=== PATIENT | female | born 1980 | race Caucasian/White ===

== ENCOUNTER → 2018-03-13 | Outpatient (CLI) | payer MEDICAID ==
--- NOTE | 2018-03-13 13:27 | MM ---
Reason for exam: screening (asymptomatic). Baseline mammogram. Physical Findings: Nurse did not find any significant physical abnormalities on exam. MG 3D Screening Mammo W/Cad Bilateral CC and MLO view(s) were taken. The breast tissue is heterogeneously dense. This may lower the sensitivity of mammography. Benign intramammary lymph node on the left. Some nodular tissue becomes less defined on 3D images. These results were verbally communicated with the patient and result sheet given to the patient on 03/13/18. ASSESSMENT: Negative, BI-RAD 1 RECOMMENDATION: Routine screening mammogram of both breasts at age 42.
== END | disposition home or self-care (01) ==
LOC: RADMAMWWP 10:08
PROVIDERS: ATTEND Obstetrics & Gynecology
DX: Z12.31 Encounter for screening mammogram for malignant neoplasm of breast (principal)
CPT/HCPCS: 77063; 77067

== ENCOUNTER → 2018-03-20 | Outpatient (CLI) | payer MEDICAID ==
--- NOTE | 2018-03-20 09:31 | US ---
EXAMINATION TYPE: US pelvic complete DATE OF EXAM: 03/20/2018 COMPARISON: NONE CLINICAL HISTORY: R68.89 ENLARGED UTERUS,N92.1 [place]. UT felt enlarged on examination TECHNIQUE: Transabdominal (TA). Transabdominal sonographic images of the pelvis were acquired. Date of LMP: 03/08/2018 EXAM MEASUREMENTS: Uterus: 11.7 x 4.5 x 6.6 cm Endometrial Stripe: 1.0 cm Right Ovary: 3.2 x 2.7 x 1.9 cm Left Ovary: 2.9 x 2.8 x 2.2 cm 1. Uterus: Anteverted Heterogeneous 2. Endometrium: wnl 3. Right Ovary: wnl 4. Left Ovary: Dominant follicle= 1.9 x 1.9 x 1.9 cm 5. Bilateral Adnexa: wnl 6. Posterior cul-de-sac: wnl IMPRESSION: Uterus is slightly enlarged in size without focal suspicious mass or fibroid. Endometrial stripe slightly thickened for late proliferative phase of menstrual cycle though trilaminar appeara nce is present.
== END | disposition home or self-care (01) ==
LOC: RADMAMWWP 08:49
PROVIDERS: ATTEND Obstetrics & Gynecology
DX: N85.2 Hypertrophy of uterus (principal); R93.89 Abnormal findings on diagnostic imaging of other specified body structures
CPT/HCPCS: 76856

== ENCOUNTER 2023-01-10 20:38 | Emergency (ER) | payer MEDICAID, OTHER ==
[2023-01-10 20:52] VITALS: TEMP 98.2
--- NOTE | 2023-01-10 22:29 | ED ---
Dizziness HPI - General Chief Complaint: Dizziness Stated Complaint: Visual Hallucinations Time Seen by Provider: 01/10/23 21:49 Source: patient, RN notes reviewed, old records reviewed Mode of arrival: ambulatory Limitations: no limitations - History of Present Illness Initial Comments: This is a 42-year-old female to the emergency department for evaluation. Patient presents today for evaluation regards to dizziness. Patient admits doing puzzles lately some change of position does cause her symptoms. She stay at the table prolonged periods of time. Doing some work with some crepitus is presents believes he had reasonable injury she moves her head and noticed about a 10 minute period of seeing exploding on in her vision. Patient does have f amily and ophthalmology became concerned for eye issue. Patient has no headache no chest pain or shortness of breath presents to the ER for evaluation at this time feels well symptoms are resolved. Patient has no other complaints MD Complaint: dizziness, other (Episode about 10 minutes lasting floaters in both eyes) -: minutes(s) (10) Timing: sudden onset Description: lightheadedness, near-syncope (Patient denies near syncopal event) History of Same: No History of Trauma: No Severity: mild Improves With: nothing Worsens With: nothing Associated Symptoms: denies other symptoms - Related Data Home Medications Medication Instructions Recorded Confirmed Albuterol Sulfate [Proair Hfa] 1 - 2 puff INHALATION Q6HR PRN 12/14/14 09/22/15 Cholecalciferol [Vitamin D3] 800 tab PO DAILY 12/14/14 09/19/15 Multivitamins, Thera [Multivitamin] 1 tab PO DAILY 09/19/15 09/19/15 Niacin 500 mg PO DAILY 09/19/15 09/22/15 Joseph-3 Fatty Acids/Fish Oil [Fish 1 each PO DAILY 09/19/15 09/19/15 Oil 1,000 mg Softgel] Previous Rx's Medication Instructions Recorded Amoxicillin 500 mg PO Q8HR #300 ml 09/22/15 Omeprazole 20 mg PO DAILY 30 Days cap 09/22/15 dexAMETHasone [Dexamethasone] 6 mg PO DIRECTED #2 tablet 09/22/15 oxyCODONE-APAP 5-325MG [Percocet 1 - 2 each PO Q6HR PRN #60 tab 09/22/15 5-325 mg] Allergies Allergy/AdvReac Type Severity Reaction Status Date / Time Gadolinium-Containing Allergy Itching Verified 01/10/23 20:46 Contrast Medi metronidazole [From Flagyl] Allergy Nausea & Verified 01/10/23 20:46 Vomiting Review of Systems ROS Statement: Those systems with pertinent positive or pertinent negative responses have been documented in the HPI. ROS Other: All systems not noted in ROS Statement are negative. Past Medical History Past Medical History: Asthma Additional Past Medical History / Comment(s): TMJ, menieres History of Any Multi-Drug Resistant Organisms: None Reported Past Surgical History: Section, Tonsillectomy, Tubal Ligation Additional Past Surgical History / Comment(s): LEFT TONSIL REMOVED Past Anesthesia/Blood Transfusion Reactions: Motion Sickness, Postoperative Nausea & Vomiting (PONV) Past Psychological History: No Psychological Hx Reported Past Alcohol Use History: Rare Past Drug Use History: None Reported - Past Family History Mother Family Medical History: No Reported History General Exam Limitations: no limitations General appearance: alert, in no apparent distress Head exam: Present: atraumatic, normocephalic, normal inspection Eye exam: Present: normal appearance, PERRL, EOMI. Absent: scleral icterus, conjunctival injection, periorbital swelling ENT exam: Present: normal exam, mucous membranes moist Neck exam: Present: normal inspection. Absent: tenderness, meningismus, lymphadenopathy Respiratory exam: Present: normal lung sounds bilaterally. Absent: respiratory distress, wheezes, rales, rhonchi, stridor Cardiovascular Exam: Present: regular rate, normal rhythm, normal heart sounds. Absent: systolic murmur, diastolic murmur, rubs, gallop, clicks GI/Abdominal exam: Present: soft, normal bowel sounds. Absent: distended, tenderness, guarding, rebound, rigid Extremities exam: Present: normal inspection, full ROM, normal capillary refill. Absent: tenderness, pedal edema, joint swelling, calf tenderness Back exam: Present: normal inspection Neurological exam: Present: alert, oriented X3, CN II-XII intact Psychiatric exam: Present: normal affect, normal mood Skin exam: Present: warm, dry, intact, normal color. Absent: rash Course Vital Signs 01/10/23 01/10/23 20:40 22:56 Temperature 98.2 F Pulse Rate 105 H 88 Respiratory 22 18 Rate Blood Pressure 155/97 142/97 O2 Sat by Pulse 100 98 Oximetry - Reevaluation(s) Reevaluation #1: 01/10/23 22:49 Medical records reviewed Reevaluation #2: 01/10/23 22:49 Symptoms unchanged As patient rate remains asymptomatic Reevaluation #3: 01/10/23 22:49 Patient informed of results and questions answered Reevaluation #4: 01/10/23 22:49 Was pt. sent in by a medical professional or institution (, [facility], E COMMERCE MARKETING ANALYST, urgent care, hospital, or correction...) When possible be specific @ -no Did you speak to anyone other than the patient for history (EMS, parent, family, police, friend...)? What history was obtained from this source @ -no Did you review nursing and triage notes (agree or disagree)? Why? @ -agree Are old charts reviewed (outside hosp., previous admission, EMS record, old EKG, old radiological studies, urgent care reports/EKG's, correction records)? R eport findings @ -yes Differential Diagnosis (chest pain, altered mental status, abdominal pain women, abdominal pain men, vaginal bleeding, weakness, fever, dyspnea, syncope, headache, dizziness, GI bleed, back pain, seizure, CVA, palpatations, mental health, musculoskeletal)? @ -prior EKG interpreted by me (3pts min.). @ -yes X-rays interpreted by me (1pt min.). @ -no CT interpreted by me (1pt min.). @ -no U/S interpreted by me (1pt. min.). @ -no What testing was considered but not performed or refused? (CT, X-rays, U/S, labs)? Why? @ -none What meds were considered but not given or refused? Why? @ -none Did you discuss the management of the patient with other professionals (professionals i.e. ADEEL Briceno, E COMMER[employer] MARKETING ANALYST, lab, RT, psych nurse, psychotherapist social worker, store sales manager, teacher, custom protection officer, piano case and bench assembler)? Give summary @ -no Was smoking cessation discussed for >3mins.? @ -no Was critical care preformed (if so, how long)? @ -no Were there social determinants of health that impacted care today? How? (Homelessness, low income, unemployed, alcoholism, drug addiction, transportation, low edu. Level, literacy, decrease access to med. care, prison, rehab)? @ -none Was there de-escalation of care discussed even if they declined (Discuss DNR or withdrawal of care, Hospice)? DNR status @ -no What co-morbidities impacted this encounter? (DM, HTN, Smoking, COPD, CAD, Cancer, CVA, ARF, Chemo, Hep., AIDS, mental health diagnosis, sleep apnea, morbid obesity)? @ -none Was patient admitted / discharged? Hospital course, mention meds given and route, prescriptions, significant lab abnormalities, going to OR and other pertinent info. @ - 42 female to the emergency department today for evaluation of visual floaters. Patient has a normal EKG here with no chest pain or shortness of breath. Patient was not near syncopal a presents for evaluation of possible eye issue, exam is normal here in the ER patient will follow-up with ophthalmology tomorrow Discharge Undiagnosed new problem with uncertain prognosis? @ -no Drug Therapy requiring intensive monitoring for toxicity (Heparin, Nitro, Insulin, Cardizem)? @ -no Were any procedures done? @ -no Diagnosis/symptom? @ -Visual floaters Acute, or Chronic, or Acute on Chronic? @ -Acute Uncomplicated (without systemic symptoms) or Complicated (systemic symptoms)? @ -Complicated Side effects of treatment? @ -no Exacerbation, Progression, or Severe Exacerbation? @ -exacerbation Poses a threat to life or bodily function? How? (Chest pain, [place], [place], pneumonia, PE, COPD, DKA, ARF, appy, cholecystitis, CVA, Diverticulitis, Homicidal, Suicidal, threat to staff... and all critical care pts) @ -no EKG Findings - EKG Comments: EKG Findings:: EKG is sinus 77 [place] 117 QRS 81 QTc 407 - EKG Results: EKG: interpreted by ERMD Medical Decision Making - Medical Decision Making 42 female to the emergency department today for evaluation of visual floaters. Patient has a normal EKG here with no chest pain or shortness of breath. Patient was not near syncopal a presents for evaluation of possible eye issue, exam is normal here in the ER patient will follow-up with ophthalmology tomorrow - EKG Data -: EKG Interpreted by Me Disposition Clinical Impression: Dizziness, Floaters in visual field Disposition: HOME SELF-CARE Condition: Good Instructions (If sedation given, give patient instructions): Visual Floaters (ED) Is patient prescribed a controlled substance at d/c from ED?: No Referrals: Clarence Calles MD [STAFF PHYSICIAN] - 1-2 days
[2023-01-10 23:10] VITALS: BP 142/97; PULSE 88; RESP 18
== END 2023-01-10 23:04 | disposition home or self-care (01) ==
LOC: EC 20:38
DX: H43.393 Other vitreous opacities, bilateral (principal); R42 Dizziness and giddiness; J45.909 Unspecified asthma, uncomplicated; Z79.899 Other long term (current) drug therapy; Z88.1 Allergy status to other antibiotic agents; Z88.8 Allergy status to other drugs, medicaments and biological substances
CPT/HCPCS: 93005; 99284

== ENCOUNTER → 2023-11-07 | Outpatient (CLI) | payer BC ==
--- NOTE | 2023-11-07 09:27 | MM ---
Reason for Exam: Screening (asymptomatic). Last mammogram was performed 5 year(s) and 8 month(s) ago. Patient History: Menarche at age 12. First Full-Term at age 31. Patient has history of breast feeding. Risk Values: Buffy 5 year model risk: 0.7%. NCI Lifetime model risk: 12.0%. Prior Study Comparison: 03/13/2018 Bilateral Screening Mammogram, [facility]. Tissue Density: The breasts are heterogeneously dense, which may obscure small masses. Findings: Analyzed By CAD. There is no suspicious group of microcalcifications or new suspicious mass in either breast. Overall Assessment: Negative, BI-RAD 1 Management: Screening Mammogram of both breasts in 1 year. . Patient should continue monthly self-breast exams. A clinical breast exam by your physician is recommended on an annual basis. This exam should not preclude additional follow-up of suspicious palpable abnormalities. Note on Buffy scores and lifetime risk: 1. A Buffy score greater than 3% is considered moderate risk. If this is the case, consider specialist referral to assess eligibility for a risk reducing agent. 2. If overall lifetime risk for the development of breast cancer is 20% or higher, the patient may qualify for future screening with alternating mammogram and breast MRI. Electronically signed and approved by: Miguel Ángel Hbuer M.D. Radiologis
== END | disposition home or self-care (01) ==
LOC: RADMAMWWP 06:48
PROVIDERS: ATTEND Obstetrics & Gynecology
DX: Z12.31 Encounter for screening mammogram for malignant neoplasm of breast (principal); R92.333 Mammographic heterogeneous density, bilateral breasts
CPT/HCPCS: 77067